=== PATIENT | male | born 1980 | race American Indian/Alaskan Native ===

== ENCOUNTER 2019-03-01 20:34 | Emergency (ER) | payer SELFPAY ==
[2019-03-02] MEDS ORDERED: ANCEF IM ONE (02:12)
[2019-03-02] MEDS ORDERED: NORCO 5/325 PO ONE (02:12)
[2019-03-02] MEDS ORDERED: BOOSTRIX IM ONE (02:12)
[2019-03-02] MEDS ORDERED: XYLOCAINE 1% MPF 5 mL INFILTRATI ONE (02:14)
--- NOTE | 2019-03-02 02:42 | Emergency Department Report ---
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 , bleeding controlled on scene with direct pressure there is no numbnes no tingling no rom intact no tendon or nerve damage Onset/Timin -: hour(s) Location: other (fingers right middle and fourth) Extremity Location: Right: Hand Place: work Patient Tetanus UTD: No Context: accidental, power tool use Associated Symptoms: pain - Related Data Previous Rx's Medication Instructions Recorded Last Taken Type Cephalexin [Keflex] 500 mg PO TID 10 Days #30 capsule 03/02/19 Unknown Rx Neomycn/Bacitrc/Polymyx/Pramox 1 applicatio TP BID 14 Days #1 tube 03/02/19 Unknown Rx [Neosporin + Pain Relief Oint] traMADol [Ultram] 50 mg PO Q6HR PRN #12 tablet 03/02/19 Unknown Rx Allergies Allergy/AdvReac Type Severity Reaction Status Date / Time No Known Allergies Allergy Unverified 03/01/19 20:54 ED Review of Systems ROS: Stated complaint: LEFT HAND INJURY Other details as noted in HPI Constitutional: denies: chills, fever Eyes: denies: eye pain, eye discharge, vision change ENT: denies: ear pain, throat pain Respiratory: no symptoms reported Cardiovascular: denies: chest pain, palpitations Endocrine: no symptoms reported Gastrointestinal: denies: abdominal pain, nausea, diarrhea Genitourinary: denies: urgency, dysuria Musculoskeletal: other (finger tip laceration and partial avulsion) Skin: denies: rash, lesions Neurological: denies: headache, weakness, paresthesias Psychiatric: denies: anxiety, depression Hematological/Lymphatic: denies: easy bleeding, easy bruising ED Past Medical Hx - Past Medical History Previous Medical History?: No - Surgical History Past Surgical History?: No - Social History Smoking Status: Never Smoker Substance Use Type: None - Medications Home Medications: Home Medications Medication Instructions Recorded Confirmed Last Taken Type Cephalexin [Keflex] 500 mg PO TID 10 Days #30 capsule 03/02/19 Unknown Rx Neomycn/Bacitrc/Polymyx/Pramox 1 applicatio TP BID 14 Days #1 tube 03/02/19 Unknown Rx [Neosporin + Pain Relief Oint] traMADol [Ultram] 50 mg PO Q6HR PRN #12 tablet 03/02/19 Unknown Rx ED Physical Exam - General Limitations: No Limitations General appearance: alert, in no apparent distress - Head Head exam: Present: atraumatic, normocephalic - Eye Eye exam: Present: normal appearance, PERRL, EOMI Pupils: Present: normal accommodation - ENT ENT exam: Present: mucous membranes moist - Neck Neck exam: Present: normal inspection - Respiratory Respiratory exam: Present: normal lung sounds bilaterally. Absent: respiratory distress - Cardiovascular Cardiovascular Exam: Present: regular rate, normal rhythm. Absent: systolic murmur, diastolic murmur, rubs, gallop - GI/Abdominal GI/Abdominal exam: Present: soft, normal bowel sounds - Rectal Rectal exam: Present: deferred - Extremities Exam Extremities exam: Present: full ROM, tenderness (right hand ), normal capillary refill - Expanded Upper Extremity Exam Right Hand Wrist exam: Present: full ROM, tenderness, laceration, other (partial right middle finger crocker avulsion ). Absent: ecchymosis, deformity, crepidus, dislocation, nail avulsion, subungual hematoma Neuro motor exam: Present: wrist extension intact, thumb opposition intact, thumb IP flexion intact, thumb adduction intact, fingers 2-5 abduction intact Neurosensory exam: Present: 2-point discrimination, radial nerve intact, ulnar nerve intact, median nerve intact Vascular: Present: normal capillary refill, radial pulse, brachial pulse, ulnar pulse. Absent: pulse deficit radial art, pulse deficit ulnar art, pulse deficit brachial art - Back Exam Back exam: Present: normal inspection, full ROM. Absent: tenderness, rash noted - Neurological Exam Neurological exam: Present: alert, oriented X3, CN II-XII intact, normal gait, reflexes normal. Absent: motor sensory deficit - Psychiatric Psychiatric exam: Present: normal affect, normal mood - Skin Skin exam: Present: warm, dry, intact, normal color. 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 ED Medical Decision Making - Radiology Data Radiology results: report reviewed, image reviewed Findings [facility] [address] [place] [address] XRay Report Signed Patient: SENIA CINTRON MR#: [id number] : 1980 Acct:[id number] Age/Sex: 38 / M ADM Date: 03/01/19 Loc: ED Attending Dr: Ordering Physician: DANNA MANDUJANO NP Date of Service: 03/02/19 Procedure(s): XR hand 3+V RT Accession Number(s): [id number] cc: DANNA MANDUJANO NP Fluoro Time In Minutes: XR HAND 3+V RT CLINICAL INDICATION: Male, 38 years of age. laceration finger right 3 4 COMPARISON: None available. FINDINGS: 3 views of the right hand obtained. Soft tissue injury involving the distal tip of the third finger. No radiopaque foreign body. No acute fracture or dislocation. Chronic appearing deformity of scaphoid bone compatible with prior trauma. There may be avascular necrosis. IMPRESSION: 1. Soft tissue injury involving the distal tip of the third finger. No radiopaque foreign body or acute fracture. 2. 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 This document is electronically signed by Bao Sabillon DO., March 02 2019 02:47:42 AM ET Transcribed By: LMA Dictated By: WILBERT SABILLON MD Electronically Authenticated By: WILBERT SABILLON MD Signed Date/Time: 03/02/19 0249 DD/ 3 TD/TT: 03/02/19234 - Medical Decision Making xray negative for fracture, wound care as note see procedure note, all bleeding is controlled pt given wound care instructions will follow up with [facility] doctor tomorrow pt for dc to home in stable condition at this time. Critical care attestation.: If time is entered above; I have spent that time in minutes in the direct care of this critically ill patient, excluding procedure time. ED Disposition Clinical Impression: Avulsion of fingertip Qualifiers: Encounter type: initial encounter Qualified Code(s): S61.209A - Unspecified open wound of unspecified finger without damage to nail, initial encounter Laceration of finger Qualifiers: Encounter type: initial encounter Finger: middle finger Damage to nail status: without damage Foreign body presence: without foreign body Laterality: right Qualified Code(s): S61.212A - Laceration without foreign body of right middle finger without damage to nail, initial encounter Disposition: DC-01 TO HOME OR SELFCARE Is pt being admited?: No Does the pt Need Aspirin: No Condition: Stable Instructions: Skin Avulsion (ED), Laceration (ED), Acute Wound Care (ED) Prescriptions: Cephalexin [Keflex] 500 mg PO TID 10 Days #30 capsule Neomycn/Bacitrc/Polymyx/Pramox [Neosporin + Pain Relief Oint] 1 applicatio TP BID 14 Days #1 tube traMADol [Ultram] 50 mg PO Q6HR PRN #12 tablet PRN Reason: Pain Referrals: BASIM VIDAL MD [Staff Physician] - 3-5 Days Forms: Work/School Release Form(ED) Time of Disposition: 03:34
--- NOTE | 2019-03-02 02:49 | XRay Report ---
XR HAND 3+V RT CLINICAL INDICATION: Male, 38 years of age. laceration finger right 3 4 COMPARISON: None available. FINDINGS: 3 views of the right hand obtained. Soft tissue injury involving the distal tip of the thir d finger. No radiopaque foreign body. No acute fracture or dislocation. Chronic appearing deformity o f scaphoid bone compatible with prior trauma. There may be avascular necrosis. IMPRESSION: 1. Soft tissue injury involving the distal tip of the third finger. No radiopaque foreign body or acu te fracture. 2. Chronic appearing deformity of the scaphoid bone compatible sequela of prior trauma and possible a vascular necrosis. This document is electronically signed by Bao Sabillon DO., March 02 2019 02:47:42 AM ET
[2019-03-02] MEDS ORDERED: WATER FOR INJ Sterile (PF) 10 ML ONE (02:52)
[2019-03-02 04:12] VITALS: BP 113/77
== END 2019-03-02 04:13 | disposition home or self-care (01) ==
LOC: ED 20:34
DX: S61.212A Laceration without foreign body of right middle finger without damage to nail, initial encounter (principal); S61.214A Laceration without foreign body of right ring finger without damage to nail, initial encounter; S61.202A Unspecified open wound of right middle finger without damage to nail, initial encounter; W28.XXXA Contact with powered lawn mower, initial encounter; Y93.89 Activity, other specified; Y92.69 Other specified industrial and construction area as the place of occurrence of the external cause; Y99.8 Other external cause status
CPT/HCPCS: 64450; 73130; 90471; 90715; 96372; 99283; J0690